=== PATIENT | female | born 2000 | race Caucasian/White ===

== ENCOUNTER → 2021-08-17 | Outpatient (CLI) | payer BC ==
--- NOTE | 2021-08-18 09:38 | EKG ---
[address] [address] ELECTROCARDIOGRAM REPORT Name: ZENAIDA RAMIREZ KJ [id number]: 08/17/21 Attend Phys: Nissa Ruiz MD Discharge: Date of : 2 Report #: [id number] [facility] Test Date: 2021-08-17 Test Time: 16:00:43 Pat Name: ZENAIDA RAMIREZ Department: Room: Gender: F [employer]: [employer] : 2000 Requested By: Nissa Ruiz Order Number: [id number] : Solis Scott Measurements Intervals [place] Rate: 85 P: 60 CT: 113 QRS: 74 QRSD: 92 T: 37 QT: 368 QTc: 438 Interpretive Statements Sinus rhythm Borderline short CT interval No previous ECG available for comparison Electronically Signed On 08-18-2021 9:38:33 [employer] by Solis Scott [email or web address] <ELECTRONICALLY SIGNED> By: Solis Scott MD, MERGED WITH [facility] 08/18/21 0938 1600 [facility] Solis Scott MD, FACC /EPI
== END ==
LOC: CV 15:43
PROVIDERS: ATTEND Pediatrics
DX: Z01.810 Encounter for preprocedural cardiovascular examination (principal); R55 Syncope and collapse